=== PATIENT | male | born 1995 | race Caucasian/White ===

== ENCOUNTER 2025-06-30 13:17 | Emergency (ER) | payer MEDICAID ==
[~2025-06-30] VITALS: Ht 172.7 cm; Wt 81.2 kg
[2025-06-30 13:21] VITALS: TEMP 98.3
--- NOTE | 2025-06-30 13:23 | Physician Documentation ---
History of Present Illness ~ Stated Complaint: CP Time Seen by MD: 13:19 HPI 9-year-old male presents to the ED with a complaint of acute onset chest pain which is worsening with muscular movement deep breaths and pushing on a wall. He has any shortness a breath. States this started this morning. 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 Allergies: Coded Allergies: lorazepam (Verified Allergy, Unknown, 06/30/25) Active Prescriptions See Medication Reconciliation Form. Physical Exam Physical Exam General: Alert, no apparent distress. Neck: Full range of motion. Respiratory: Lungs clear, no respiratory distress. Chest: No accessory muscle use. Tender via palpation to the left chest wall Cardiovascular: Regular rate and rhythm, no murmurs. Progress Results/Orders Results/Orders Orders - NIKO DE LA CRUZ COMMODITIES MANAGER Chest,Single View (06/30/25 13:23) Electrocardiogram (06/30/25 ) Completed Orders - NIKO DE LA CRUZ COMMODITIES MANAGER Chest,Single View (06/30/25 13:23) Ibuprofen Tablet (Motrin Tablet) (06/30/25 13:40) Medications Received in ER Medications (Trade) Dose Ordered Sig/Preethi Route PRN Reason Start Time Stop Time Status Last Admin Dose Admin (Motrin tablet) 400 mg ONCE ONCE PO 06/30/25 13:40 06/30/25 13:41 DC 06/30/25 14:04 400 MG Vital Signs 06/30/25 13:21 Temp 98.3 Pulse 72 Resp 14 B/P (MAP) 118/77 Pulse Ox 96 O2 Flow Rate 0 Medical Decision Making Additional information obtaine: old records Findings Patient presents with a suspected chest wall pain secondary to my physical exam and his complaints. EKG was reassuring with no signs of ST elevation and normal sinus rhythm. Patient states that the ibuprofen did help his symptoms. Chest x-ray per my interpretation showed no signs of any consolidations fluid buildup or opacity Differential Dx:Considerations: Include: Chest wall contusion, Flail chest, Myocardial contusion, Pneumothorax, Pulmonary contusion, Rib fracture, Renal contusion, Splenic fracture, Tension pneumothorax, Other Departure Disposition: HOME / SELF CARE / HOMELESS Impression: Primary Impression: Chest wall pain Condition: Stable Discharge Instructions: Chest Wall Pain, Costochondritis Referrals: NO PRIMARY CARE PROVIDER (PCP) Signature Scribe Signature: f Attestation: Scribed for Niko De La Cruz Cloth Presser by Niko Tsang NP . 06/30/25 14:23 NIKO DE LA CRUZ NP Jun 30, 2025 13:23
--- NOTE | 2025-06-30 13:43 | RADIOLOGY REPORT ---
EXAM: DI CHEST,SINGLE VIEW HISTORY: chest wall pain TECHNIQUE: 1 view of the chest COMPARISON: None FINDINGS/IMPRESSION: LUNGS: No pleural effusion, consolidation, or pneumothorax. MEDIASTINUM: Normal cardiac size. BONES: No acute osseous abnormality. OTHER: None.
[2025-06-30] MEDS: ibuprofen tablet 400 MG TABLET PO ONE (14:04)
[2025-06-30 14:37] VITALS: BP 115/70; PULSE 69; RESP 18; O2SAT 98
--- NOTE | 2025-06-30 15:21 | ELECTROCARDIOGRAPH REPORT ---
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 Darius Grider Measurements Intervals [place] Rate: 70 P: 34 AR: 178 QRS: 62 QRSD: 104 T: 29 QT: 367 QTc: 396 Interpretive Statements Sinus rhythm Electronically Signed On 06-30-2025 20:39:[address] Darius Grider Please click the below link to view image of tracing.
== END 2025-06-30 14:53 | disposition home or self-care (01) ==
LOC: ER 13:18
DX: R07.89 Other chest pain (principal); Z95.0 Presence of cardiac pacemaker
CPT/HCPCS: 71045; 93005; 99283

== ENCOUNTER 2025-07-18 19:11 | Emergency (ER) | payer MEDICAID ==
[~2025-07-18] VITALS: Ht 177.8 cm; Wt 82.1 kg
[2025-07-18 19:52] LABS: MEAN PLATELET VOLUME 8.1 FL (7.4-10.4); RED CELL DISTRIBUTION WIDTH 13.7 % (11.5-14.5)
[2025-07-18] MEDS ORDERED: dicyclomine 10mg/5ml oral solution 5ml UD bottle PO STA (20:05)
[2025-07-18 20:06] LABS: CREATININE 1.02 MG/DL (0.60-1.10); TOTAL CARBON DIOXIDE 28.8 MMOL/L (24-32); eCRCL 110 ML/MIN; eGFR 86 ML/MIN
--- NOTE | 2025-07-18 20:18 | Physician Documentation ---
History of Present Illness Chief Complaint: Abdominal Pain Stated Complaint: HEADACHE/NAUSEA Time Seen by MD: 19:24 HPI 29-year-old male brought to the emergency department by care provider for evaluation of lower abdominal discomfort with mild nausea. Abdominal discomfort is generalized vague in description non localized in his accompanied with nausea. There has been no reported fever and/or vomiting. No reported diarrhea, melena stool or hematochezia. No prior history of the same. Family member denies ill contacts, recent travels or other illnesses or hospitalizations. Medication Reconciliation Allergies: Coded Allergies: lorazepam (Verified Allergy, Unknown, 07/18/25) Review of Systems All Other Systems at this time: Reviewed and Negative Constitutional: Reports: see HPI Gastrointestinal: Reports: abdominal pain, nausea Physical Exam Vital Signs: RN Vital Signs have been reviewed: Yes, Temperature: 97.6, Source: Temporal, Heart Rate: 94, Respiratory Rate: 16, BP: 130/85, Pulse Oximetry: 97, Weight: 82.100 General Appearance: alert, WD/WN, mild distress EENT: PERRL/EOMI Neck: normal inspection Respiratory: normal breath sounds Chest: no accessory muscle use Cardiovascular: normal peripheral pulses Gastrointestinal: bowels sounds present, tenderness (Mild diffuse tenderness without localized right lower quadrant pain, rebound tenderness, peritoneal sign s or Guzman's tenderness.) Rectal: deferred Extremities: normal range of motion Neurologic: oriented x4 Psychiatric: normal mood/affect Skin: normal color, warm/dry Lymphatic: no adenopathy Progress Results/Orders Results/Orders Orders - VELMA CONNOR PAC Urinalysis, Cult If Indicated (07/18/25 19:29) Completed Orders - VELMA CONNOR PAC Cbc/Diff (07/18/25 19:29) BMP (07/18/25 19:29) Lipase (07/18/25 19:29) CMP (07/18/25 19:29) Ondansetron Disint. Tablet (Zofran Odt T (07/18/25 20:05) Dicyclomine 10mg/5ml Oral Uma. (Dicyclom (07/18/25 20:05) Vital Signs 07/18/25 19:24 Temp 97.6 Pulse 94 Resp 16 B/P (MAP) 130/85 Pulse Ox 97 Laboratory Tests Test 07/18/25 19:42 White Blood Count 7.3 Red Blood Count 5.04 Hemoglobin 16.0 Hematocrit 47.0 Mean Corpuscular Volume 93.3 Mean Corpuscular Hemoglobin 31.8 H Mean Corpuscular Hemoglobin Concent 34.1 Red Cell Distribution Width 13.7 Platelet Count 258 Mean Platelet Volume 8.1 Neutrophils (%) (Auto) 56.2 Lymphocytes (%) (Auto) 24.3 Monocytes (%) (Auto) 11.5 Eosinophils (%) (Auto) 7.5 H Basophils (%) (Auto) 0.5 Neutrophils # (Auto) 4.1 Lymphocytes # (Auto) 1.8 Monocytes # (Auto) 0.8 Eosinophils # (Auto) 0.5 Basophils # (Auto) 0.0 CBC Comment Sodium Level 141 Potassium Level 4.1 Chloride Level 106 Carbon Dioxide Level 28.8 Anion Gap 6 L Blood Urea Nitrogen 15 Creatinine 1.02 Estimated GFR/1.73 m2 86 BUN/Creatinine Ratio 14.7 Glucose Level 100 Calcium Level 8.4 L Total Bilirubin 0.1 Aspartate Amino Transf (AST/SGOT) 18 Alanine Aminotransferase (ALT/SGPT) 32 Alkaline Phosphatase 76 Total Protein 7.6 Albumin 3.9 Globulin 3.7 Albumin/Globulin Ratio 1.1 Lipase 39 Chemistry Comments Medical Decision Making Additional information obtaine: old records Findings Examination & history consistent with early presentation of nonsurgical abdominal discomfort. Single dose Zofran in dicyclomine provided for patient. Patient reassessed continues to have mild reproducible discomfort yet non localized. Able to tolerate p.o. foods. All labs reviewed and reassuring. Safely discharged in the emergency department with instructions to advance diet slowly beginning with clear fluids. Differential Dx:Considerations: Bowel obstruction, Cholangitis, Cholelithasis, Constipation, Diverticular disease, Gastritis/PUD, Gastroenteritis, Inflammatory BD, Ischemic bowel Departure Disposition: HOME / SELF CARE / HOMELESS Impression: Primary Impression: Abdominal pain Qualified Codes: R10.84 - Generalized abdominal pain Condition: Improved Discharge Instructions: Abdominal Pain (Nonspecific) Additional Instructions: Labs obtained tonight in the emergency department are all reassuring. Gisella has received a one time dose Zofran for nausea and Dicyclomine for bowel cramping. Please follow up with his primary care physician and to return to the emergency department if symptoms worsen. Thank you for visiting [facility]. Referrals: NO PRIMARY CARE PROVIDER (PCP) Education Educated: Patient, Family Educated regarding: diagnosis, treatment, prognosis, need for follow up Signature Scribe Signature: . Attestation: . VELMA CONNOR PAC Jul 18, 2025 20:17
[2025-07-18] MEDS: ondansetron 4mg rapidly disintigrating tab PO ONE (20:20)
[2025-07-18 21:23] VITALS: BP 113/78; PULSE 83; RESP 13; TEMP 97.6; O2SAT 98
== END 2025-07-18 21:29 | disposition home or self-care (01) ==
LOC: ER 19:11
DX: R10.84 Generalized abdominal pain (principal); Z88.8 Allergy status to other drugs, medicaments and biological substances
CPT/HCPCS: 36415; 80053; 83690; 85025; 99283